=== PATIENT | female | born 1970 | race Caucasian/White ===

== ENCOUNTER → 2022-01-28 | Outpatient (CLI) | payer SELFPAY ==
[2022-01-28 13:55] LABS: Stool Occult Bld Immuno 1 Positive (NEGATIVE)
== END | disposition home or self-care (01) ==
LOC: LAB SHORT 10:00
PROVIDERS: Registered Nurse
DX: Z00.00 Encounter for general adult medical examination without abnormal findings (principal)
CPT/HCPCS: G0328

== ENCOUNTER 2023-05-05 00:45 | Observation (INO) | payer BC ==
[~2023-05-05] VITALS: Ht 142.2 cm; Wt 64.2 kg
[2023-05-05] VITALS (18 sets, daily range): BP systolic 108–162; BP diastolic 51–84
[2023-05-05 03:53] LABS: BASOPHILS ABSOLUTE AUTO 0.06 K/mm3 (0.00-0.23); BASOPHILS PERCENT AUTO 1 % (0-2); EOSINOPHILS ABSOLUTE AUTO 0.15 K/mm3 (0.00-0.68); EOSINOPHILS PERCENT AUTO 1 % (0-6); Hematocrit 37.3 % (33.0-51.0); Hemoglobin 11.8 g/dL (11.5-16.0); IMMATURE GRAN ABSOLUTE AUTO 0.04 K/mm3 (0.00-0.10); IMMATURE GRAN PERCENT AUTO 0 % (0-1); LYMPHOCYTES ABSOLUTE AUTO 2.15 K/mm3 (0.84-5.20); LYMPHOCYTES PERCENT AUTO 16 % (21-46); MONOCYTES ABSOLUTE AUTO 0.48 K/mm3 (0.16-1.47); MONOCYTES PERCENT AUTO 4 % (4-13); Mean Corpuscular HGB 25.7 pg (26.0-34.0); Mean Corpuscular HGB Conc 31.6 g/dL (31.5-36.5); Mean Corpuscular Volume 81 fL (80-100); Mean Platelet Volume 9.7 fL (9.1-12.4); NEUTROPHILS ABSOLUTE AUTO 10.34 K/mm3 (1.96-9.15); NEUTROPHILS PERCENT AUTO 78 % (41-73); Platelet Count 313 K/mm3 (150-400); RDW Coefficient Variation 14.2 % (11.7-14.2); RDW Standard Deviation 41.9 fL (35.1-46.3); Red Blood Cell Count 4.59 M/mm3 (3.80-5.20); White Blood Cell Count 13.22 K/mm3 (4.00-11.30)
[2023-05-05 04:22] LABS: Magnesium, Blood 1.4 mg/dL (1.6-2.4)
[2023-05-05 05:30] LABS: Albumin, Blood 3.7 g/dL (3.4-5.0); Albumin/Globulin Ratio 0.9 (0.8-1.8); Bilirubin, Total 0.2 mg/dL (0.1-1.0); Calcium, Blood 9.3 mg/dL (8.5-10.1); Creatinine, Blood 0.73 mg/dL (0.40-1.00); Globulin, Blood 3.9 g/dL (2.2-4.0); Total Protein, Blood 7.6 g/dL (6.4-8.2)
[2023-05-05] MEDS ORDERED: PLAVIX75 MG PO (05:33)
[2023-05-05] MEDS ORDERED: LOSARTAN POTASS25 M2 PO (05:34)
[2023-05-05] MEDS ORDERED: ATORVASTATIN CA20 MG PO (05:34)
[2023-05-05] MEDS ORDERED: ZOLOFT50 MG PO (05:34)
[2023-05-05] MEDS ORDERED: GLYB2.5 PO (08:19)
[2023-05-05] MEDS ORDERED: METF500 PO (08:19)
--- NOTE | 2023-05-05 09:39 | NUR ---
PIV #20 TO LAC C/D/I.
--- NOTE | 2023-05-05 09:39 | NUR ---
Into [facility] via [email or web address]. History, Chart, Medications and Allergies reviewed before start of procedure.Mg+ 1.4-2 grams Magnesium Sulfate repletion initiated.Lungs clear T/O to Auscultation. Patient confirms NPO status and agrees with scheduled surgery. Surgical site prepped with 2% Chlorhexidine cloth wipe.Pt denies pain or nausea at this time.
[2023-05-05] MEDS ORDERED: ALBU90OI INH (13:49)
[2023-05-05] MEDS ORDERED: CARV3.125 PO (13:49)
[2023-05-05 15:45] LABS: Potassium, Blood 4.1 mmol/L (3.5-5.5)
--- NOTE | 2023-05-05 18:03 | NUR ---
SHIFT SUMMARY- PT IS A/O, PLESANT AND COOPERATIVE. SHE WENT FOR SURGERY THIS MORNING AND RETURNED WITH A WOODY DRAIN. SHE IS EATING AND DRINKING WELL. MEDICATED FOR PAIN AND NAUSEA. HER BED IS IN THE LOW POSITON AND CALL LIGHT IS FARHEEN BERG.
--- NOTE | 2023-05-05 19:15 | NUR ---
RECEIVED BEDSIDE REPORT FROM DAY SHIFT RN. PT LYING IN BED. RESP EVEN. VISITING WITH FAMILY AT BEDSIDE. WILL CONTINUE TO PROVIDE CARE T/O SHIFT. CALL LT IN REACH. NO NEEDS AT THIS TIME.
--- NOTE | 2023-05-05 19:36 | NUR ---
PT REQUESTED TEMP CHECKED. FELT LIKE SHE HAD A FEVER. ORAL TEMP WAS 98.6.
--- NOTE | 2023-05-05 22:00 | NUR ---
PT RESTING QUIETLY. IVF INFUSING. CALL LT IN REACH.
--- NOTE | 2023-05-06 | NUR ---
PT RESTING QUIETLY. CALL LT IN REACH.
--- NOTE | 2023-05-06 01:58 | NUR ---
PT RESTING QUIETLY. IVF INFUSING. CALL LT IN REACH.
[2023-05-06 02:32] VITALS: BP 137/89
--- NOTE | 2023-05-06 04:45 | NUR ---
SHIFT SUMMARY: PT PLEASANT AND COOPERATIVE. SBA/INDEP IN RM. MEDICATED FOR ABDOMINAL PAIN WITH 1 TAB NORO AND WITH GOOD PAIN CONTROL. PT RESTED WELL. WOODY DRAIN PATENT AND DRAINING RED COLORED FLUID. LR INFUSING AT 75 MLS/HR. NO ACUTE CHANGES. PT DENIES NAUSEA, TOLERATING PO. WILL CONTINUE TO PROVIDE CARE UNTIL SHIFT REPORT TO ONCOMING NURSE. NO ACUTE CHANGES. CALL LT IN REACH.
[2023-05-06 06:16] VITALS: BP 112/55
--- NOTE | 2023-05-06 06:17 | NUR ---
PT AWAKE AND FEELING BETTER. REQUESTING SOME JUICE. NO OTHER NEEDS. CALL LT IN REACH.
[2023-05-06 07:03] VITALS: BP 127/53
--- NOTE | 2023-05-06 08:11 | NUR ---
PT AWAKE NOW, ALERT AND TALKING IN A WHISPER. PT NODS YES WHEN ASKED IF SHE HAS LOST HER VOICE. PT STATES SHE DOES NOT KNOW WHERE SHE IS. PT RE-ORIENTED TO SITUATION. PT ORIENTED TO REASON SHE IS IN A CAROLIN AND PT AGREES SHE WILL NOT ATTEMPT TO GET OOB ALONE OR PULL OUT IV. ATTEMPTED TO GIVE PT A SIP OF WATER WITH STRAW AND SHE BEGAN COUGHING. PT HAS WET AUDIBLE COUGH WITH [employer] SPUTUM PRODUCTION. PT WAS ABLE TO SWALLOW APPLE SAUCE WITHOUT HAVING COUGHING SPELL. WILL HOLD BREAKFAST AND REQUEST A SPEECH EVAL FROM . REMOVED CAROLIN VEST. WILL KEEP CAMERA IN PLACE. BED IN LOW POSITION AND CALL LIGHT IN REACH AND PT ORIENTED HOW TO USE. BED ALARM ON. LIGHTING EQUIPMENT OPERATOR UPDATED WITH POC.
[2023-05-06 09:20] LABS: BASOPHILS ABSOLUTE AUTO 0.03 K/mm3 (0.00-0.23); BASOPHILS PERCENT AUTO 0 % (0-2); EOSINOPHILS ABSOLUTE AUTO 0.05 K/mm3 (0.00-0.68); EOSINOPHILS PERCENT AUTO 0 % (0-6); Hematocrit 29.8 % (33.0-51.0); Hemoglobin 9.3 g/dL (11.5-16.0); IMMATURE GRAN ABSOLUTE AUTO 0.06 K/mm3 (0.00-0.10); IMMATURE GRAN PERCENT AUTO 0 % (0-1); LYMPHOCYTES ABSOLUTE AUTO 2.45 K/mm3 (0.84-5.20); LYMPHOCYTES PERCENT AUTO 18 % (21-46); MONOCYTES ABSOLUTE AUTO 0.66 K/mm3 (0.16-1.47); MONOCYTES PERCENT AUTO 5 % (4-13); Mean Corpuscular HGB 25.7 pg (26.0-34.0); Mean Corpuscular HGB Conc 31.2 g/dL (31.5-36.5); Mean Corpuscular Volume 82 fL (80-100); Mean Platelet Volume 9.8 fL (9.1-12.4); NEUTROPHILS ABSOLUTE AUTO 10.12 K/mm3 (1.96-9.15); NEUTROPHILS PERCENT AUTO 76 % (41-73); Platelet Count 272 K/mm3 (150-400); RDW Coefficient Variation 14.4 % (11.7-14.2); RDW Standard Deviation 42.9 fL (35.1-46.3); Red Blood Cell Count 3.62 M/mm3 (3.80-5.20); White Blood Cell Count 13.37 K/mm3 (4.00-11.30)
[2023-05-06 09:36] LABS: Albumin, Blood 3.1 g/dL (3.4-5.0); Albumin/Globulin Ratio 0.9 (0.8-1.8); Bilirubin, Total 0.1 mg/dL (0.1-1.0); Bun/Creatinine Ratio 23.7 (12.0-20.0); Calcium, Blood 8.8 mg/dL (8.5-10.1); Creatinine, Blood 0.68 mg/dL (0.40-1.00); Globulin, Blood 3.6 g/dL (2.2-4.0); Potassium, Blood 3.7 mmol/L (3.5-5.5); Total Protein, Blood 6.7 g/dL (6.4-8.2)
[2023-05-06] MEDS ORDERED: LORA10ER PO (10:43)
[2023-05-06 14:29] VITALS: BP 143/81
--- NOTE | 2023-05-06 18:35 | NUR ---
SHIFT SUMMARY: PT A/O X 4, IND IN ROOM PLEASANT AND COOPERATIVE. WOODY DRAIN HAD 50 ML OUTPUT THROUGHOUT THIS SHIFT. CONTINUES TO BE RED BLOOD DRAINAGE. LAP SITE DRESSINGS CDI. ABD PAIN TO RUQ AREA MANAGED WITH NORCO 1 TAB, MEDICATIONS GIVEN TWICE TODAY FOR PAIN. PT HAD NO OTHER COMPLAINTS. EATING WELL AND DRINKING FLUIDS WELL. PT IS PASSING GAS.
[2023-05-06 19:22] VITALS: BP 141/45
[2023-05-07 02:55] VITALS: BP 151/62
[2023-05-07 05:11] LABS: BASOPHILS ABSOLUTE AUTO 0.04 K/mm3 (0.00-0.23); BASOPHILS PERCENT AUTO 0 % (0-2); EOSINOPHILS ABSOLUTE AUTO 0.22 K/mm3 (0.00-0.68); EOSINOPHILS PERCENT AUTO 2 % (0-6); Hematocrit 28.4 % (33.0-51.0); IMMATURE GRAN ABSOLUTE AUTO 0.05 K/mm3 (0.00-0.10); IMMATURE GRAN PERCENT AUTO 0 % (0-1); LYMPHOCYTES ABSOLUTE AUTO 2.73 K/mm3 (0.84-5.20); LYMPHOCYTES PERCENT AUTO 22 % (21-46); MONOCYTES ABSOLUTE AUTO 0.76 K/mm3 (0.16-1.47); MONOCYTES PERCENT AUTO 6 % (4-13); Mean Corpuscular HGB 25.7 pg (26.0-34.0); Mean Corpuscular HGB Conc 31.7 g/dL (31.5-36.5); Mean Corpuscular Volume 81 fL (80-100); Mean Platelet Volume 9.6 fL (9.1-12.4); NEUTROPHILS ABSOLUTE AUTO 8.63 K/mm3 (1.96-9.15); NEUTROPHILS PERCENT AUTO 69 % (41-73); Platelet Count 271 K/mm3 (150-400); RDW Coefficient Variation 14.6 % (11.7-14.2); RDW Standard Deviation 43.4 fL (35.1-46.3); White Blood Cell Count 12.43 K/mm3 (4.00-11.30)
--- NOTE | 2023-05-07 07:09 | NUR ---
REPORT RECEIVED VERIFIED A/O PLEASENT AND HAS NO COMPLAINTS. AT BEDSIDE AND THEY WILL CALL IF NEEDING ANYTHING. WOODY DRAINNING SEROSANGUINOUS DRAINAGE, NO C/O PAIN AND IS ATTEMPTING TO SLEEP. SOME PAIN NOTED TO ABD PT TREATED PER MAR, PT FEELS BETTER AND CURRENTLY HAS NO PAIN. .
[2023-05-07 07:54] VITALS: BP 131/62
[2023-05-07] MEDS ORDERED: Norco 5-325 Ta1 EACH PO (11:46)
--- NOTE | 2023-05-07 17:34 | NUR ---
DISCHARGE SUMMARY: PT EDUCATED ON DISCHARGE INSTRUCTIONS AND MEDICATIONS. PT VU. PT GOT HERSELF DRESSED. PT HAD BEED EDUCATED ON DRAIN MANAGEMENT. PT ASSISTED WITH PACKING UP BELONGINGS. PT ESCORTED TO POV VIA WC WITH . PAIN MANAGED AT THIS TIME. PT HAD NO CONCERNS ON DISCHARGE.
== END 2023-05-07 17:24 | disposition home or self-care (01) ==
LOC: ER 00:45 → MEDS 00:46 → ERHOLD 00:46 → MEDS 08:38 → ENPENDDIS 05-07 11:16 → MEDS 05-07 17:24
PROVIDERS: Student in an Organized Health Care Education/Training Program; ADMIT Surgery
PROC: 0FT44ZZ Resection of Gallbladder, Percutaneous Endoscopic Approach (ICD-10-PCS; principal; 2023-05-05 09:30)
DX: K80.12 Calculus of gallbladder with acute and chronic cholecystitis without obstruction (principal); E11.9 Type 2 diabetes mellitus without complications; I10 Essential (primary) hypertension; E78.00 Pure hypercholesterolemia, unspecified; Z86.73 Personal history of transient ischemic attack (TIA), and cerebral infarction without residual deficits; E83.42 Hypomagnesemia; Z88.5 Allergy status to narcotic agent
CPT/HCPCS: 36415; 74177; 74300; 80053; 82435; 82947; 83735; 84132; 84295; 85025; 86850; 86900; 86901; 88304; 93005; 93010; 94640; 94760; 96361; 96365-59; 96375-59; 99285-25; A9270; C1894; G0378; J0295; J1100; J1885; J2250; J2371; J2405; J2704; J3010; J3475; J7030; J7120; Q9967

== ENCOUNTER 2023-12-08 13:48 | Day surgery (SDC) | payer BC ==
[~2023-12-08] VITALS: Ht 142.2 cm; Wt 67.2 kg
[~2023-12-08 13:48] MED LIST: ALBU90OI INH; ATORVASTATIN CA20 MG PO; Atropine Sulfate 0.1 MG/ML 10ML SYR ONE; CARV3.125 PO; GLYB2.5 PO; Glycopyrrolate 0.2 MG/ML 1MLVIAL ONE; LORA10ER PO; LOSARTAN POTASS25 M2 PO; Lactated Ringer's 1,000 ML IV ONE; Lidocaine 2% 5 ML SDV ONE; Lidocaine HCl/Pf 1% 5 ML VIAL ONE; METF500 PO; Methylene Blue 1% 100 MG/10 ML VIAL ONE; Norco 5-325 Ta1 EACH PO; Ondansetron HCl 2 MG / ML 2ML Vial ONE; PLAVIX75 MG PO; ZOLOFT50 MG PO; ePHEDrine Sulfate 50 MG/ML 1ML Injection ONE; propofoL 50 ML IV ONE
[2023-12-08] MEDS ORDERED: OZEMPIC0.25 MG/02 (14:10)
[2023-12-08] MEDS ORDERED: CENTRUM SILVER1 EAC2 (14:11)
[2023-12-08] MEDS ORDERED: Lactated Ringer's 1,000 ML IV ONE (15:02)
[2023-12-08 16:19] VITALS: BP 117/65
== END 2023-12-08 16:18 | disposition home or self-care (01) ==
LOC: ORSCSDS 13:48
PROVIDERS: Internal Medicine Gastroenterology
PROC: 0DBN8ZX Excision of Sigmoid Colon, Via Natural or Artificial Opening Endoscopic, Diagnostic (ICD-10-PCS; principal; 2023-12-08 15:15)
PROC: 0DBP8ZX Excision of Rectum, Via Natural or Artificial Opening Endoscopic, Diagnostic (ICD-10-PCS; principal; 2023-12-08 15:15)
DX: Z12.11 Encounter for screening for malignant neoplasm of colon (principal); R19.5 Other fecal abnormalities; D12.5 Benign neoplasm of sigmoid colon; K62.1 Rectal polyp; E11.9 Type 2 diabetes mellitus without complications; Z86.73 Personal history of transient ischemic attack (TIA), and cerebral infarction without residual deficits; Z79.02 Long term (current) use of antithrombotics/antiplatelets; I10 Essential (primary) hypertension; J45.909 Unspecified asthma, uncomplicated; E78.5 Hyperlipidemia, unspecified; Z79.899 Other long term (current) drug therapy; Z79.84 Long term (current) use of oral hypoglycemic drugs
CPT/HCPCS: 82947; 88305; J0461; J2001; J2405; J2704; J7120; Q9968

== ENCOUNTER 2024-01-30 15:03 | Emergency (ER) | payer BC ==
[~2024-01-30] VITALS: Ht 142.2 cm; Wt 68.0 kg
[~2024-01-30 15:03] MED LIST changes: -Atropine Sulfate 0.1 MG/ML 10ML SYR ONE; +CENTRUM SILVER1 EAC2; -Glycopyrrolate 0.2 MG/ML 1MLVIAL ONE; -Lactated Ringer's 1,000 ML IV ONE; -Lidocaine 2% 5 ML SDV ONE; -Lidocaine HCl/Pf 1% 5 ML VIAL ONE; -Methylene Blue 1% 100 MG/10 ML VIAL ONE; +OZEMPIC0.25 MG/02; -Ondansetron HCl 2 MG / ML 2ML Vial ONE; -ePHEDrine Sulfate 50 MG/ML 1ML Injection ONE; -propofoL 50 ML IV ONE
[2024-01-30] MEDS ORDERED: Dexamethasone Sod Phos 10 MG/ML 1ML VIAL PO ONE (16:40)
[2024-01-30] MEDS ORDERED: Oxymetazoline 0.05% Nasal Relief Spray 15mL BTL ONE (16:40)
[2024-01-30 16:48] LABS: Influenza A, PCR NEGATIVE (NEGATIVE); Influenza B, PCR NEGATIVE (NEGATIVE); Resp Syncytial Virus, PCR NEGATIVE (NEGATIVE); SARS-Cov-2 (COVID-19) PCR, MMC NEGATIVE (NEGATIVE)
[2024-01-30 17:00] VITALS: BP 149/85
== END 2024-01-30 17:10 | disposition home or self-care (01) ==
LOC: ER 15:03
PROVIDERS: Nurse Practitioner
DX: J45.901 Unspecified asthma with (acute) exacerbation (principal); J06.9 Acute upper respiratory infection, unspecified; E11.9 Type 2 diabetes mellitus without complications; I10 Essential (primary) hypertension; E78.00 Pure hypercholesterolemia, unspecified; Z86.73 Personal history of transient ischemic attack (TIA), and cerebral infarction without residual deficits; Z88.6 Allergy status to analgesic agent; Z91.018 Allergy to other foods; Z88.8 Allergy status to other drugs, medicaments and biological substances; Z79.84 Long term (current) use of oral hypoglycemic drugs; Z79.899 Other long term (current) drug therapy; Z79.02 Long term (current) use of antithrombotics/antiplatelets
CPT/HCPCS: 0241U; 71046; 99285-25; A9270; J1100